=== PATIENT | male | born 1965 | race Caucasian/White ===

== ENCOUNTER 2017-09-08 14:37 | Emergency (ER) | payer OTHER ==
[~2017-09-08] VITALS: Ht 182.9 cm; Wt 92.5 kg
[~2017-09-08 14:37] MED LIST: BUPROPION HCL75 M1 PO; DIAZEPAM10 M1 PO; NAPROSYN500 M1 PO; NORCO 5-325 TA1 EACH PO; PAROXETINE HCL30 M1 PO; PREDNISONE10 M2 PO; ROBAXIN500 M1 PO
[2017-09-08 14:51] VITALS: BP 144/88
--- NOTE | 2017-09-08 15:50 | ED UPPER/LOWER EXTREMITY COMPL ---
History of Present Illness General Chief Complaint: Hand or Wrist Injury Stated Complaint: PT CUT HIS LEFT FINGER Source: patient Exam Limitations: no limitations Vital Signs & Intake/Output Vital Signs & Intake/Output Vital Signs Date Time Temp Pulse Resp B/P B/P Pulse O2 O2 Flow FiO2 Mean Ox Delivery Rate 09/08 1451 97.0 87 18 144/88 96 Room Air Room Air Allergies Coded Allergies: Penicillins (Intermediate, RASH 05/20/17) Triage Note: PT WAS WORKING WITH POCKET KNIFE AND IT SLIPPED AND CUT LEFT INDEX FINGER. PT REPORTS THAT TIP OF FINGER IS NUMB. LACERATION APPEARS TO BE ABOUT AN Triage Nurses Notes Reviewed? yes Onset: Abrupt Duration: constant Timing: single episode today Severity: severe Severity Numbers: 7 HPI: Patient is a 52-year-old male who presents emergency room with concerns of trying to open a top of GLUE with a knife where he accidentally lacerated his left second digit index finger of his hand with the knife resulting in acute onset of bleeding patient is right arm dominant. Tetanus is up-to-date (Neal Villalta) Reconcile Medications Bupropion HCl 75 MG TABLET 1 TAB PO DAILY MENTAL HEALTH (Reported) Diazepam 10 MG TABLET 1 TAB PO BIDP PRN SLEEP (Reported) Hydrocodone/Acetaminophen ([place] 5-325 Tablet) 1 EACH TABLET 1-2 TAB PO Q6P PRN PAIN Hydrocodone/Acetaminophen (Vicodin 5-300 MG Tablet) 5 MG-300 MG TABLET 1 TAB PO BID PRN PAIN Methocarbamol (Robaxin) 500 MG TABLET 1 TAB PO TID PRN MUSCLE SPASMS Naproxen (Naprosyn) 500 MG TABLET 1 TAB PO BID PRN PAIN Paroxetine HCl 30 MG TABLET 1 TAB PO DAILY ANXIETY (Reported) Prednisone 10 MG TABLET 1 TAB PO DAILY BACK PAIN 4 TABS PO X 3 DAYS, 3 TABS PO X 3 DAYS, 2 TABS PO X 3 DAYS, 1 TAB PO X 3 DAYS (Brice Wilson DO) Past History Travel History Traveled to [place] past 21 day No Medical History Any Pertinent Medical History? see below for history Psychiatric: anxiety, PTSD Blood Disorders: NONE Cancer(s): NONE PROFESSIONAL SHOPPER/Reproductive: NONE Surgical History Surgical History: non-contributory Psychosocial History What is your primary language Moh[place] Tobacco Use: Current Not Daily Daily Tobacco Use Amount/Type: =< 4 Cigarettes daily Family History Hx Contributory? No (Neal Villalta) Review of Systems Review of Systems Constitutional: Reports: no symptoms. EENTM: Reports: no symptoms. Respiratory: Reports: no symptoms. Cardiovascular: Reports: no symptoms. Gastrointestinal/Abdominal: Reports: no symptoms. Genitourinary: Reports: no symptoms. Musculoskeletal: Reports: see HPI, joint pain. Skin: Reports: see HPI. Neurological/Psychological: Reports: no symptoms. Hematologic/Endocrine: Reports: see HPI, bleeding. Immunological: Reports: no symptoms. All Other Systems: Reviewed and Negative (Neal Villalta) Physical Exam Physical Exam General Appearance: no apparent distress, alert, comfortable Head: atraumatic Eyes: Bilateral: normal appearance. Ears, Nose, Throat: hearing grossly normal Neck: normal inspection Cardiovascular/Respiratory: no respiratory distress Peripheral Pulses: 2+ radial (L) Neurologic/Tendon: normal sensation, normal motor functions, normal tendon functions, responds to pain, no evidence tendon injury, no pulse deficit Skin: normal color Diagram Hands Front 1) Noted 1 cm subcutaneous linear laceration with no exposed bone no exposed tendon mild active bleeding for active range of motion and resisted range of motion with flexion and extension no tendon deficit capillary refill less than 2 seconds mild decreased distal phalanx decreased dermatome sensation (Neal Villalta) Progress Differential Diagnosis: arterial insufficiency, compartment syndrome, contusion, dislocation, DVT, fracture, gout, septic arthritis, sprain, tendon injury Plan of Care: No concerns of tendon deficit or fracture on exam margins were revised with suture placement (Neal Villalta) Departure Departure Disposition: HOME OR SELF CARE Condition: Stable Clinical Impression Primary Impression: Laceration of left index finger Referrals: Patient Has No Primary Care Dr (PCP/Family) Additional Instructions: As discussed begin [id number] ibuprofen for pain and inflammation begin the prescription of Vicodin for breakthrough pain relief, PRESCRIPTIONS Waiting at [facility], Begin Applying Bacitracin with the Bandages Provided to YOU IN the Emergency Room Change the dressings once a day if you note signs of infection redness, pain, swelling, discharge return to emergency room, return to emergency room in 7-9 days for suture removal Departure Forms: Customer Survey General Discharge Information Prescriptions: Current Visit Scripts Hydrocodone/Acetaminophen (Vicodin 5-300 MG Tablet) 1 TAB PO BID PRN PAIN #6 TAB (Neal Villalta) PA/HEAD PAPER TESTER Co-Sign Statement Statement: ED Attending supervision documentation- [] I saw and evaluated the patient. I have also reviewed all the pertinent lab results and diagnostic results. I agree with the findings and the plan of care as documented in the PA's/HEAD PAPER TESTER's documentation. [X] I have reviewed the ED Record and agree with the PA's/HEAD PAPER TESTER's documentation. [] Additions or exceptions (if any) to the PAs/HEAD PAPER TESTER's note and plan are summarized below: [] (Brice Wilson DO) Procedures Laceration/Wound Repair Laceration/Wound Repair: Wound Location: upper extremity (LEFT 2ND DIGIT) Wound's Depth, Shape: linear, subcutaneous Wound Length (cm): 1 Wound Explored: clean, no foreign body removed, irrigated extensively Irrigated w/ Saline (ccs): 360 Betadine Prep? Yes Anesthesia: 1% lidocaine Volume Anesthetic (ccs): 2 Wound Repaired With: sutures Suture Size/Type: 5:0 Number of Sutures: 4 Progress: Margins were revised this suture placement patient tolerated well bacitracin bandage was applied (Neal Villalta)
[2017-09-08] MEDS ORDERED: VICODIN 5-3001 EACH PO (16:55)
== END 2017-09-08 17:17 ==
LOC: ERH 14:37
DX: S61.211A Laceration without foreign body of left index finger without damage to nail, initial encounter (principal); W26.0XXA Contact with knife, initial encounter; Y93.89 Activity, other specified; Y92.9 Unspecified place or not applicable
CPT/HCPCS: 90714